=== PATIENT | male | born 1975 | race Caucasian/White ===

== ENCOUNTER 2020-03-01 00:43 | Emergency (ER) | payer OTHER ==
[~2020-03-01] VITALS: Ht 180.3 cm; Wt 77.1 kg
[~2020-03-01 00:43] MED LIST: CYCL10TA9 PO; IBUP-1955 PO
--- NOTE | 2020-03-01 01:10 | NUR ---
at bedside for assessment
[2020-03-01] MEDS ORDERED: IBUPROFEN 800 MG TABLET PO ONE (01:15)
[2020-03-01] MEDS ORDERED: HYDROCODONE/APAP 5-325MG TABLET PO ONE (01:15)
[2020-03-01] MEDS ORDERED: HYDROCODONE/APAP 5-325MG TABLET ONE (01:19)
[2020-03-01] MEDS ORDERED: IBUPROFEN 800 MG TABLET ONE (01:19)
--- NOTE | 2020-03-01 02:35 | NUR ---
posterior short leg splint applied to right leg, secured with louise bandage, tolerated procedure well, nosigns of distress noted
--- NOTE | 2020-03-01 02:48 | NUR ---
Patient discharged to home in stable condition. Given crutches and instructions on hos to use crutches, instructed to follow up with ortho. Patient ambulated with steady gait, states "friend" will pick patient up from ER. Took all belongings, No signs of distress noted, Given CD of X-rays, given Rx, instructed not to drive will taking prescribed medications. Written and verbal after care instructions given. Patient verbalizes understanding of instructions. Stressed follow up or return to ER for worsening s/s.
[2020-03-01 02:49] VITALS: BP 164/78
== END 2020-03-01 02:50 | disposition home or self-care (01) ==
LOC: ER 00:45
DX: S92.324A Nondisplaced fracture of second metatarsal bone, right foot, initial encounter for closed fracture (principal); S92.244A Nondisplaced fracture of medial cuneiform of right foot, initial encounter for closed fracture; S92.224A Nondisplaced fracture of lateral cuneiform of right foot, initial encounter for closed fracture; X50.1XXA Overexertion from prolonged static or awkward postures, initial encounter; Y93.01 Activity, walking, marching and hiking; Y92.832 Beach as the place of occurrence of the external cause
CPT/HCPCS: 73630; A4663